=== PATIENT | male | born 1990 | race African-American/Black ===

== ENCOUNTER 2021-11-06 12:26 | Emergency (ER) | payer MEDICAID, SELFPAY ==
[2021-11-06 13:34] LABS: Bacteria/HPF None Seen HPF (None Seen); Bilirubin Negative (Negative); Blood, Urine Negative (Negative); Clarity Clear (Clear); Glucose, Urine (Dipstick) Normal (Negative); Ketone, Urine Negative (Negative); Leukocyte 250 Leu/uL (Negative); Nitrite Negative (Negative); Protein, Urine (Dipstick) 10 mg/dL (Neg-Trace); RBC/HPF 0-3 HPF (0-3); Specific Gravity, Urine 1.027 (1.002-1.036); Squamous Epithelial None Seen HPF (0-3); Urobilinogen Normal mg/dL (Less than 2); WBC/HPF Greater than 50 HPF (0-3); pH, Urine 6.5 (5.0-9.0)
[2021-11-06] MEDS ORDERED: cefTRIAXone\\ROCEPHIN 500 MG VIAL ONE (14:13)
[2021-11-06] MEDS ORDERED: Lidocaine 1% PF 5 ML VIAL ONE (14:13)
[2021-11-06 21:09] LABS: Chlam.trachomatis by PCR,Urine DETECTED (NotDetected)
== END 2021-11-06 14:25 | disposition home or self-care (01) ==
LOC: ERS 12:26
DX: N34.1 Nonspecific urethritis (principal)
CPT/HCPCS: 81003; 81015; 87491; 87591; 96372; 99283; J0696